=== PATIENT | female | born 1945 | race Caucasian/White ===

== ENCOUNTER 2020-09-12 18:29 | Inpatient (IN) | payer MEDICARE, BC ==
[~2020-09-12] VITALS: Ht 172.7 cm; Wt 81.8 kg
[2020-09-12] MEDS ORDERED: LISINOPRIL-HCT1 EAC7 PO (18:36)
[2020-09-12] MEDS ORDERED: OSTEO BI-FLEX1 EAC1 PO (18:36)
[2020-09-12] MEDS ORDERED: CALCIUM 500 +1 EAC3 PO (18:36)
[2020-09-12] MEDS ORDERED: PRAVASTATIN SOD10 MG PO (18:37)
[2020-09-12 18:55] LABS: BASOPHILS 0.2 % (0-2); EOSINOPHILS 0.3 % (0-7); HEMATOCRIT 45.6 % (36.0-48.0); HEMOGLOBIN 15.6 g/dL (12-16); IMMATURE GRANULOCYTES 0.2 % (0-5); LYMPHOCYTES 32.4 % (15-50); MCH 30.8 pg (26.0-34.0); MCHC 34.2 g/dL (31.0-37.0); MCV 90.1 fL (80.0-100.0); MEAN PLATELET VOLUME 10.3 fL (7.4-10.4); MONOCYTES 7.2 % (2-11); NEUTROPHIL ABS# 5.34 10x3/uL (1.56-6.13); NEUTROPHILS 59.7 % (40-80); PLATELET COUNT 237 10x3/uL (130-400); RBC 5.06 10x6/uL (4.00-5.40); RDW 12.8 % (11.5-14.5)
[2020-09-12 19:02] LABS: CALC OSMOLALITY 281 mosm/kg (275-300); CALCIUM 10.1 mg/dL (8.5-10.1); CARBON DIOXIDE 30.6 mmol/L (21.0-32.0); CHLORIDE - SERUM 101 mmol/L (98-107); CREATININE - SERUM 0.9 mg/dL (0.6-1.3); GLUCOSE 139 mg/dL (74-106); POTASSIUM - SERUM 3.9 mmol/L (3.5-5.1); SODIUM 141 mmol/L (136-145); UREA NITROGEN 11 mg/dL (7-18); eGFR NON AFRICAN AMERICAN 65 mL/min (90-120)
[2020-09-12 19:03] LABS: APTT 43.2 SECONDS (22.8-39.4); INR 1.12 (0.85-1.17); PROTIME 13.4 SECONDS (11.6-15.0)
[2020-09-12 19:19] LABS: ALBUMIN 3.9 g/dL (3.4-5.0); ALKALINE PHOSPHATASE 76 U/L (30-120); ALT (SGPT) 33 U/L (10-68); BILIRUBIN - TOTAL 0.65 mg/dL (0.2-1.3); CKMB 3.8 U/L (0.0-3.6); CREATINE KINASE 154 UL (21-215); MAGNESIUM - SERUM 1.9 mg/dL (1.8-2.4); PROTEIN - SERUM 7.9 g/dL (6.4-8.2)
[2020-09-12 19:21] LABS: TROPONIN-I < 0.017 ng/mL (0.000-0.060)
[2020-09-12 20:43] VITALS: BP 150/76
--- NOTE | 2020-09-12 20:54 | NUR ---
HAVE CALLED TWICE TO GIVE REPORT AND HAVE BEEN PLACED ON HOLD FOR MINUTES.
--- NOTE | 2020-09-12 21:12 | NUR ---
PT ARRIVED VIA W/C FROM ER. NO DISTRESS NOTED. SPOUSE AT BEDSIDE.
[2020-09-12] MEDS ORDERED: BAYER CHEWABLE81 MG PO (21:36)
[2020-09-12] MEDS ORDERED: MULTI-DAY VITAM1 TAB (21:37)
[2020-09-12] MEDS ORDERED: FISH OIL 1,0001 CA1 PO (21:37)
[2020-09-12] MEDS ORDERED: MUCINEX600 MG PO (21:38)
[2020-09-12] MEDS ORDERED: CINNAMON500 MG PO (21:39)
[2020-09-12] MEDS ORDERED: VITAMIN C500 M1 PO (21:40)
[2020-09-12] MEDS ORDERED: BLACK ELDERBERRY (21:41)
[2020-09-12 21:56] VITALS: BP 154/76; BMI 27.4
--- NOTE | 2020-09-12 22:27 | NUR ---
ADMISSION ASSESSMENT, HISTORY AND HOME MED LIST COMPLETED. UCAF PER CM HR 102. VSS. IV TO RAC WITH CARDIZEM AT 10MG/HR. IV PATENT. LUNGS CTA. YANES PALPABLE PERIPHERAL PULSES. DENIES ANY DISCOMFORT. SPOUSE AT BEDSIDE. BED CONTROLS EXPLAINED TO CONVEYOR MECHANIC ND SPOUSE. CARDIZEM EXPLAINED. SR UP X1, CALL LIGHT WITHIN REACH AND SPOUSE AT BEDSIDE.
--- NOTE | 2020-09-12 23:37 | NUR ---
VSS. CAF PER CM HR 82. PT RESTING WITH EYES CLOSED. RESP EVEN AND REGULAR. SR UP X1, CALL LIGHT WITHIN REACH.
[2020-09-13] VITALS: BP 131/71
--- NOTE | 2020-09-13 01:05 | NUR ---
SR PER CM HR 62. PT RESTING WITH EYES CLOSED. RESP EVEN AND REGULAR. SPOUSE AT BEDSIDE.
--- NOTE | 2020-09-13 02:00 | NUR ---
SR PER CM HR 60. PT RESTING WITH EYES CLOSED. RESP EVEN AND REGULAR. CALL LIGHT WITHIN REACH.
[2020-09-13 04:00] VITALS: BP 110/55
--- NOTE | 2020-09-13 04:05 | NUR ---
VSS. SR PER CM HR 62. DENIES ANY DISCOMFORT. SPOUSE AT BEDSIDE.
--- NOTE | 2020-09-13 05:46 | NUR ---
VSS THIS AM. SR PER CMHR 65. PT RESTED WELL DURING SHIFT. NEEDS MET; WILL CONTINUE TO MONITOR.
[2020-09-13 06:28] LABS: BASOPHILS 0.1 % (0-2); EOSINOPHILS 0.4 % (0-7); HEMATOCRIT 42.1 % (36.0-48.0); HEMOGLOBIN 14.1 g/dL (12-16); IMMATURE GRANULOCYTES 0.1 % (0-5); LYMPHOCYTE ABS# 2.27 10x3/uL (1.18-3.74); LYMPHOCYTES 32.2 % (15-50); MCH 30.3 pg (26.0-34.0); MCHC 33.5 g/dL (31.0-37.0); MCV 90.5 fL (80.0-100.0); MEAN PLATELET VOLUME 11.4 fL (7.4-10.4); MONOCYTES 7.5 % (2-11); NEUTROPHIL ABS# 4.21 10x3/uL (1.56-6.13); NEUTROPHILS 59.7 % (40-80); PLATELET COUNT 235 10x3/uL (130-400); RBC 4.65 10x6/uL (4.00-5.40); RDW 12.9 % (11.5-14.5); WBC 7.1 10x3/uL (4.8-10.8)
[2020-09-13 06:55] LABS: ALBUMIN 3.4 g/dL (3.4-5.0); ANION GAP 12.8 mmol/L (8-16); BILIRUBIN - TOTAL 0.62 mg/dL (0.2-1.3); CALCIUM 9.3 mg/dL (8.5-10.1); CARBON DIOXIDE 27.9 mmol/L (21.0-32.0); CREATININE - SERUM 0.8 mg/dL (0.6-1.3); MAGNESIUM - SERUM 2.1 mg/dL (1.8-2.4); PHOSPHOROUS 4.1 mg/dL (2.5-4.9); POTASSIUM - SERUM 3.7 mmol/L (3.5-5.1); PROTEIN - SERUM 6.6 g/dL (6.4-8.2); T4 THYROXIN - FREE 0.95 ng/dL (0.76-1.46)
--- NOTE | 2020-09-13 07:00 | NUR ---
RECEIVED REPORT. ASSUMED CARE OF PATIENT. RESTING IN BED WITH EYES CLOSED, EASILY AROUSED. SPOUSE AT BEDSIDE. CALL LIGHT WITHIN REACH. WHITE BOARD UPDATED, BEDSIDE SHIFT REPORT COMPLETE. NO DISTRESS. REMAINS IN SR AT THIS TIME.
[2020-09-13 08:39] VITALS: Ht 172.7 cm; Wt 81.8 kg
[2020-09-13 08:44] VITALS: BP 120/58
--- NOTE | 2020-09-13 12:40 | NUR ---
PATIENT IS AMBULATORY, SCDs REFUSED. PATIENT IS CURRENTLY RECEIVING LOVENOX AND ELIQUIS. EDUCATION PROVIDED THAT SCDs CAN REDUCE THE RISK OF DVT FORMATION.
[2020-09-13 16:00] VITALS: BP 129/63
--- NOTE | 2020-09-13 16:46 | NUR ---
RESTING WELL. NO DISTRESS. FRESH ICE WATER PROVIDED. CONTINUES ON CARDIZEM GTT PER CARDIOLOGY X 24 HOURS. INITIATED XARELTO AT THIS TIME. NO DISTRESS.
[2020-09-13 20:00] VITALS: BP 138/64
[2020-09-14 00:01] VITALS: BP 135/63
--- NOTE | 2020-09-14 01:27 | NUR ---
I have reviewed this patient and I concur with the Shift Assessment completed by the Licensed Practical Nurse today this shift.
--- NOTE | 2020-09-14 03:11 | NUR ---
RESTING WITH EYES CLOSED, NO S/S DISTRESS NOTED.
[2020-09-14 04:30] VITALS: BP 122/60
[2020-09-14 06:30] LABS: BASOPHILS 0.3 % (0-2); EOSINOPHILS 0.9 % (0-7); HEMATOCRIT 38.6 % (36.0-48.0); HEMOGLOBIN 13.3 g/dL (12-16); IMMATURE GRANULOCYTES 0.3 % (0-5); LYMPHOCYTE ABS# 2.54 10x3/uL (1.18-3.74); LYMPHOCYTES 34.5 % (15-50); MCH 30.9 pg (26.0-34.0); MCHC 34.5 g/dL (31.0-37.0); MCV 89.6 fL (80.0-100.0); MONOCYTES 7.9 % (2-11); NEUTROPHIL ABS# 4.14 10x3/uL (1.56-6.13); NEUTROPHILS 56.1 % (40-80); PLATELET COUNT 224 10x3/uL (130-400); RBC 4.31 10x6/uL (4.00-5.40); RDW 12.5 % (11.5-14.5); WBC 7.4 10x3/uL (4.8-10.8)
[2020-09-14 06:31] LABS: ALBUMIN 3.2 g/dL (3.4-5.0); BILIRUBIN - TOTAL 0.57 mg/dL (0.2-1.3); CALCIUM 8.7 mg/dL (8.5-10.1); CARBON DIOXIDE 28.5 mmol/L (21.0-32.0); CREATININE - SERUM 0.8 mg/dL (0.6-1.3); MAGNESIUM - SERUM 1.9 mg/dL (1.8-2.4); POTASSIUM - SERUM 3.5 mmol/L (3.5-5.1); PROTEIN - SERUM 6.5 g/dL (6.4-8.2)
--- NOTE | 2020-09-14 07:26 | NUR ---
RECEIVE SHIFT REPORT. RESTING IN BED. DENIES ANY NEEDS AT THIS TIME. ON TELEMETRY SINUS ABBIE 56. TURNED OFF CARDIZEM DRIP RUNNING @2ML/HR. WILL NOTIFY CARDIOLOGY. ALREADY STARTED ON ORAL BETAPACE PER CARDIOLOGY.
[2020-09-14 08:10] VITALS: BP 133/61
[2020-09-14 12:00] VITALS: BP 124/54
[2020-09-14 16:00] VITALS: BP 139/60
--- NOTE | 2020-09-14 17:25 | NUR ---
DENIES ANY NEEDS AT THIS TIME. STATES SHE IS READY TO GO HOME. SITTING UP IN BED EATING DINNER. CALL LIGHT IN REACH. FRIEND AT BEDSIDE.
[2020-09-14 20:00] VITALS: BP 155/50
[2020-09-15] VITALS: BP 144/70
[2020-09-15 04:00] VITALS: BP 131/56
[2020-09-15 05:09] LABS: BASOPHILS 0.3 % (0-2); EOSINOPHILS 0.9 % (0-7); HEMATOCRIT 38.7 % (36.0-48.0); HEMOGLOBIN 12.7 g/dL (12-16); IMMATURE GRANULOCYTES 0.2 % (0-5); LYMPHOCYTE ABS# 2.51 10x3/uL (1.18-3.74); LYMPHOCYTES 37.8 % (15-50); MCH 29.7 pg (26.0-34.0); MCHC 32.8 g/dL (31.0-37.0); MCV 90.4 fL (80.0-100.0); MONOCYTES 10.4 % (2-11); NEUTROPHIL ABS# 3.35 10x3/uL (1.56-6.13); NEUTROPHILS 50.4 % (40-80); PLATELET COUNT 219 10x3/uL (130-400); RBC 4.28 10x6/uL (4.00-5.40); RDW 12.8 % (11.5-14.5); WBC 6.6 10x3/uL (4.8-10.8)
[2020-09-15 05:39] LABS: ALBUMIN 3.2 g/dL (3.4-5.0); ANION GAP 11.4 mmol/L (8-16); BILIRUBIN - TOTAL 0.56 mg/dL (0.2-1.3); CALCIUM 8.7 mg/dL (8.5-10.1); CARBON DIOXIDE 27.3 mmol/L (21.0-32.0); CREATININE - SERUM 0.8 mg/dL (0.6-1.3); MAGNESIUM - SERUM 2.1 mg/dL (1.8-2.4); POTASSIUM - SERUM 3.7 mmol/L (3.5-5.1); PROTEIN - SERUM 6.5 g/dL (6.4-8.2)
--- NOTE | 2020-09-15 08:00 | NUR ---
PT STATES SHE WILL BE DISCHARGED. NO IV ACCESS. A & O. BREATH SOUNDS CLEAR. BOWEL SOUNDS PRESENT. INTERACTING WITH NURSE APPROPRIATELY. VITALS STABLE. NO DISTRESS NOTED.
[2020-09-15 08:29] VITALS: BP 147/53
[2020-09-15] MEDS ORDERED: XARELTO20 MG PO (11:27)
[2020-09-15] MEDS ORDERED: SYNTHROID25 MCG PO (11:28)
[2020-09-15] MEDS ORDERED: BETAPACE 80 MG80 MG PO (11:28)
[2020-09-15] MEDS ORDERED: PROTONIX40 MG PO (11:28)
[2020-09-15 11:56] VITALS: BP 125/55
--- NOTE | 2020-09-15 12:19 | NUR ---
DISCHARGE INSTRUCTIONS PROVIDED TO PATIENT AND . VERBALIZED UNDERSTANDING. DISCHARGED VIA WHEELCHAIR TO VEHICLE.
--- NOTE | 2020-09-15 13:13 | NUR ---
DISCHARGED VIA WHEELCHAIR TO VEHICLE WITH .
== END 2020-09-15 13:14 | disposition home or self-care (01) | DRG 310 ==
LOC: D.ER 18:29 → D.M2 20:40
PROVIDERS: Family Medicine; ADMIT Family Medicine; ATTEND Family Medicine
DX: I48.91 Unspecified atrial fibrillation (principal); R55 Syncope and collapse; I10 Essential (primary) hypertension; E78.5 Hyperlipidemia, unspecified